=== PATIENT | female | born 1995 | race Caucasian/White ===

== ENCOUNTER 2016-05-15 20:32 | Inpatient (IN) | payer OTHER ==
[~2016-05-15] VITALS: Ht 162.6 cm; Wt 76.1 kg
[2016-05-15 23:00] VITALS: Ht 162.6 cm; Wt 76.1 kg
[2016-05-15] MEDS ORDERED: METHYLERGONOVINE 0.2 MG INJ IM PRN (23:00)
[2016-05-15] MEDS ORDERED: IBUPROFEN 600 MG TAB PO PRN (23:00)
[2016-05-15] MEDS ORDERED: AMPICILLIN 2 GM/NS (PMX) 100 ML IV ONE (23:00)
[2016-05-15] MEDS ORDERED: OXYTOCIN 30 UNITS/LR 500 ML IV SCH (23:00)
[2016-05-15] MEDS ORDERED: BUTORPHANOL 2 MG INJ IV PRN ×2 (23:00)
[2016-05-15] MEDS ORDERED: ACETAMINOPHEN/CODEINE #3 TAB PO PRN (23:00)
[2016-05-15] MEDS ORDERED: LIDOCAINE 1% (MPF) 30 ML INJ INJ PRN (23:00)
[2016-05-15] MEDS ORDERED: LACTATED RINGER'S 1,000 ML IV PRN (23:00)
[2016-05-15] MEDS ORDERED: MISOPROSTOL 200 MCG TAB PR PRN (23:00)
[2016-05-15] MEDS ORDERED: CARBOPROST 250 MCG INJ IM PRN (23:00)
[2016-05-15] MEDS ORDERED: OXYTOCIN 30 UNITS/LR 500 ML IV PRN (23:00)
[2016-05-15 23:01] VITALS: BP 117/71; PULSE 85; RESP 18
[2016-05-15 23:04] LABS: BASOPHILS % 0.4 % (0.0-2.0); EOSINOPHILS % 0.7 % (0.0-7.0); HEMOGLOBIN 13.2 g/dl (12.0-16.0); LYMPHOCYTES # 1.2 10^3/ul (0.8-2.9); LYMPHOCYTES % 17.8 % (15.0-51.0); MEAN CORPUSCULAR HEMOGLOBIN 31.9 pg (29.0-33.0); MEAN CORPUSCULAR HGB CONC 33.9 g/dl (32.0-37.0); MEAN CORPUSCULAR VOLUME 94.1 fl (82.0-101.0); MEAN PLATELET VOLUME 9.2 fl (7.4-10.4); MONOCYTE # 0.5 10^3/ul (0.3-0.9); MONOCYTES % 7.8 % (0.0-11.0); NEUTROPHIL # 4.9 10^3/ul (1.6-7.5); NEUTROPHILS % 73.3 % (39.0-77.0); PLATELET COUNT 156 10^3/UL (140-440); RED BLOOD COUNT 4.15 10^6/ul (4.20-5.40); RED CELL DISTRIBUTION WIDTH 13.7 % (11.5-14.5); UNCORRECTED WBC 6.7 10^3/ul (4.8-10.8); WHITE BLOOD COUNT 6.7 10^3/ul (4.8-10.8)
[2016-05-15 23:06] LABS: CONDITION 1
[2016-05-15 23:07] LABS: INR 0.88; PROTIME 11.9 Sec (12.2-14.2); PT RATIO 0.9
[2016-05-15 23:08] LABS: PARTIAL THROMBOPLASTIN TIME 23.5 Sec (25.0-35.0)
[2016-05-15] MEDS: LACTATED RINGER'S 1,000 ML IV SCH (23:10)
[2016-05-15] MEDS: MISOPROSTOL 25 MCG CAPSULE PO SCH (23:31)
[2016-05-16] MEDS: AMPICILLIN 1 GM/NS (PMX) 50 ML IV SCH ×2 (03:40→07:50)
[2016-05-16] MEDS: MISOPROSTOL 25 MCG CAPSULE PO SCH ×6 (03:41→23:00)
[2016-05-16] MEDS: LACTATED RINGER'S 1,000 ML IV SCH (06:09)
[2016-05-16] MEDS: DEXTROSE 5%-LR 1,000 ML IV SCH ×2 (08:11→16:00)
--- NOTE | 2016-05-16 09:01 | HP ---
Date/Time of Note Date/Time of Note DATE: 05/16/16 TIME: 08:59 OB - History Hx of Present Chief Complaint: induction of labor Estimated Due Date: May 15, 2016 : 2 Para: 0 Spontaneous : 1 Therapeutic : 0 Care: Good Care Ultrasounds: Normal mid trimester US Obstetrical Complications: None Medical Complications: None Past Family/Social History * Past Medical, Surgical, Family and Obstetric Histories reviewed from chart. GBS Status: Positive OB Admission Exam Vital Signs Vital Signs Vital Signs Date Time Temp Pulse Resp B/P Pulse Ox O2 Delivery O2 Flow Rate FiO2 05/15/16 23:01 98.3 85 18 117/71 Room Air Physical Exam HEENT: WNL Heart: Rhythm Normal Lungs: Clear Abdomen: WNL Extremities: Normal Reflexes: Normal Cervical Dilatation: Fingertip Membranes: Intact Accelerations: Accelerations Present Decelerations: No Decelerations Last 72 hours Lab Results CBC & BMP 05/15/16 22:00 OB Assessment/Plan Reason for admission: induction of labor Plan: Induction Induction Method: per Misoprostol Protocol JULIAN FARMER MD May 16, 2016 09:01
[2016-05-16] MEDS: OXYTOCIN 30 UNITS/LR 500 ML IV SCH ×3 (10:11→15:53)
[2016-05-16] MEDS: LACTATED RINGER'S 1,000 ML IV* SCH ×2 (10:50→20:27)
--- NOTE | 2016-05-16 10:50 | LDN ---
Date/Time of Note Date/Time of Note DATE: 05/16/16 TIME: 10:48 Delivery Summary Placenta Delivered: Spontaneously Meconium: none Perineum intact?: Yes Perineal laceration repair: Left labial laceration repaired. Anesthesia type: Local Estimated blood loss: 300 Sponge & Needle done & correct: Yes All needle counts correct: Yes Any foreign bodies felt in the: No Problems: Delivery Information Sex Sex: female Apgars 1 Minute: 9 5 Minute: 9 Suctioning Nose & mouth suctioned at vick: Yes Delee suction performed: No Umbilical Cord Umbilical cord with: 3 Vessels Cord presentations: no nuchal cord Cord Blood was obtained: Yes Mother & Baby Disposition Disposition Mom & Baby to Maternity; Good: Yes JULIAN FARMER MD May 16, 2016 10:50
[2016-05-16] MEDS ORDERED: METHYLERGONOVINE 0.2 MG INJ IM PRN (11:00)
[2016-05-16] MEDS ORDERED: BENZOCAINE 20% 56 ML SPRAY TOP PRN (11:00)
[2016-05-16] MEDS ORDERED: WITCH HAZEL/GLYCERIN PAD PR PRN (11:00)
[2016-05-16] MEDS ORDERED: CARBOPROST 250 MCG INJ IM PRN (11:00)
[2016-05-16] MEDS ORDERED: OXYTOCIN 30 UNITS/LR 500 ML IV PRN (11:00)
[2016-05-16] MEDS ORDERED: MISOPROSTOL 200 MCG TAB PR PRN (11:00)
[2016-05-16] MEDS ORDERED: ACETAMINOPHEN 325 MG TAB PO PRN (11:00)
[2016-05-16] MEDS ORDERED: ACETAMINOPHEN/CODEINE #3 TAB PO PRN (11:00)
[2016-05-16] MEDS ORDERED: DIBUCAINE 1% 30 GM OINT PR PRN (11:00)
[2016-05-16] MEDS: IBUPROFEN 600 MG TAB PO SCH ×2 (12:00→18:00)
[2016-05-16 13:19] VITALS: BP 105/57; PULSE 88; RESP 20
[2016-05-16 15:58] VITALS: BP 101/54; PULSE 89; RESP 19
[2016-05-16 20:00] VITALS: BP 102/57; PULSE 73; RESP 20
[2016-05-16] MEDS: SENNA/DOCUSATE NA (8.6MG/50MG) TAB PO SCH (22:25)
[2016-05-17] VITALS: BP 106/55; PULSE 70; RESP 20
[2016-05-17] MEDS: DEXTROSE 5%-LR 1,000 ML IV SCH
[2016-05-17] MEDS: IBUPROFEN 600 MG TAB PO SCH ×4 (00:20→17:33)
[2016-05-17] MEDS: LACTATED RINGER'S 1,000 ML IV* SCH (02:50)
[2016-05-17] MEDS: MISOPROSTOL 25 MCG CAPSULE PO SCH ×6 (03:00→23:00)
[2016-05-17 04:00] VITALS: BP 101/51; PULSE 64; RESP 20
[2016-05-17 08:30] VITALS: BP 102/59; PULSE 72; RESP 16
[2016-05-17 08:42] LABS: BASOPHILS % 0.1 % (0.0-2.0); EOSINOPHILS % 0.4 % (0.0-7.0); HEMATOCRIT 34.3 % (37.0-47.0); HEMOGLOBIN 11.5 g/dl (12.0-16.0); LYMPHOCYTES # 1.3 10^3/ul (0.8-2.9); LYMPHOCYTES % 17.8 % (15.0-51.0); MEAN CORPUSCULAR HEMOGLOBIN 31.8 pg (29.0-33.0); MEAN CORPUSCULAR HGB CONC 33.5 g/dl (32.0-37.0); MEAN CORPUSCULAR VOLUME 94.8 fl (82.0-101.0); MEAN PLATELET VOLUME 11.2 fl (7.4-10.4); MONOCYTE # 0.5 10^3/ul (0.3-0.9); MONOCYTES % 7.5 % (0.0-11.0); NEUTROPHIL # 5.3 10^3/ul (1.6-7.5); NEUTROPHILS % 73.9 % (39.0-77.0); PLATELET COUNT 138 10^3/UL (140-415); RED BLOOD COUNT 3.62 10^6/ul (4.20-5.40); RED CELL DISTRIBUTION WIDTH 13.3 % (11.5-14.5); WHITE BLOOD COUNT 7.2 10^3/ul (4.8-10.8)
[2016-05-17] MEDS: SENNA/DOCUSATE NA (8.6MG/50MG) TAB PO SCH ×2 (08:51→21:53)
[2016-05-17] MEDS ORDERED: INFLUENZA VIRUS VACCINE 0.5 ML (DISPENSING) IM* ONE (09:00)
[2016-05-17 15:54] VITALS: BP 106/59; PULSE 77; RESP 18
--- NOTE | 2016-05-17 18:44 | PN ---
Date/Time of Note Date/Time of Note DATE: 05/17/16 TIME: 18:43 OB Subjective Subjective Subjective Post day 1 Patient is doing well, Ambulatory She is afebrile Abdomen is soft , Fundus is firm Moderate amount of lochia Breasts are soft, Nipples are intact No calf tenderness. Perineum is healing well. Breast feeding the new born. Laboratory Tests Test 05/17/16 08:05 Basophils # 0.010^3/ul Basophils % 0.1% Eosinophils # 0.010^3/ul Eosinophils % 0.4% Hematocrit 34.3% Hemoglobin 11.5g/dl Lymphocytes # 1.310^3/ul Lymphocytes % 17.8% Mean Corpuscular Hemoglobin 31.8pg Mean Corpuscular Hemoglobin Concent 33.5g/dl Mean Corpuscular Volume 94.8fl Mean Platelet Volume 11.2fl Monocytes # 0.510^3/ul Monocytes % 7.5% Neutrophils # 5.310^3/ul Neutrophils % 73.9% Nucleated Red Blood Cells # 0.010^3/ul Nucleated Red Blood Cells % 0.0/100WBC Platelet Count 53364^3/UL Red Blood Count 3.6210^6/ul Red Cell Distribution Width 13.3% White Blood Count 7.210^3/ul Current Medications Medications (Trade) Dose Ordered Sig/Berta Route PRN Reason Start Time Stop Time Status Last Admin Dose Admin Lactated Ringer's 1,000 ml @ 125 mls/hr Q8H IV 05/15/16 22:47 05/16/16 08:01 DC 05/16/16 06:09 Ampicillin 100 ml @ 100 mls/hr ONCE ONCE IV 05/15/16 23:00 05/15/16 23:59 DC 05/15/16 23:31 Ampicillin (Ampicillin 1 Gm/ NS (Pmx)) 50 ml @ 100 mls/hr Q4H IV 05/16/16 03:00 05/16/16 10:54 DC 05/16/16 07:50 Misoprostol (Cytotec 25 Mcg Capsule) 50 mcg Q4H PO 05/15/16 23:00 05/16/16 03:41 Butorphanol Tartrate (Stadol) 1 mg Q2H PRN IV PAIN 05/15/16 23:00 Butorphanol Tartrate (Stadol) 2 mg Q2H PRN IV PAIN 05/15/16 23:00 Lidocaine 30 ml 30 ml ONCE PRN INJ EPISIOTOMY/TEARING 05/15/16 23:00 Oxytocin/Lactated Ringer's 500 ml @ 125 mls/hr ONCE -MAY REPEAT X1 IV 05/15/16 23:00 05/16/16 15:53 Oxytocin/Lactated Ringer's 500 ml @ 125 mls/hr ONCE IV 05/15/16 23:00 05/16/16 10:29 Ibuprofen (Motrin) 600 mg ONCE PRN PO Mild Pain (Pain Score 1-3) 05/15/16 23:00 05/16/16 18:04 Acetaminophen/ Codeine Phosphate 2 tab 2 tab ONCE PRN PO Moderate to Severe Pain (4-10) 05/15/16 23:00 Lactated Ringer's 1,000 ml @ 2,000 mls/hr Q30M PRN IV PRE-EPIDURAL BOLUS 05/15/16 23:00 Oxytocin/Lactated Ringer's 500 ml @ 0 mls/hr ONCE PRN IV For Hemorrhage Management 05/15/16 23:00 Methylergonovine Maleate (Methergine) 0.2 mg ONCE PRN IM VAGINAL BLEEDING 05/15/16 23:00 Carboprost Tromethamine (Hemabate) 250 mcg ONCE PRN IM VAGINAL BLEEDING 05/15/16 23:00 Misoprostol 1000 mcg 1,000 mcg ONCE PRN [place] VAGINAL BLEEDING 05/15/16 23:00 Dextrose/Lactated Ringer's 1,000 ml @ 125 mls/hr Q8H IV 05/16/16 08:00 05/17/16 10:37 DC 05/16/16 08:11 Lactated Ringer's (Lr) 1,000 ml @ 125 mls/hr Q8H IV* 05/16/16 10:50 05/17/16 10:38 DC 05/16/16 20:27 Ibuprofen (Motrin) 600 mg Q6 PO 05/16/16 12:00 05/17/16 17:33 Acetaminophen (Tylenol Tab) 650 mg Q4H PRN PO PAIN LEVEL 1-5 05/16/16 11:00 Acetaminophen/ Codeine Phosphate (Tylenol No.3) 1 tab Q4H PRN PO PAIN LEVEL 1-5 05/16/16 11:00 Senna/Docusate Sodium (Senokot-S) 1 tab BID PO 05/16/16 21:00 05/17/16 08:51 Witch Afua/ Glycerin (Tucks Pads) 1 pad BEDSIDE MEDICATION PRN [place] HEMORRHOID/EPISIOTMY PAIN 05/16/16 11:00 Benzocaine (Dermoplast Lafferty) 1 spray BEDSIDE MEDICATION PRN TOP HEMORRHOID/EPISIOTMY PAIN 05/16/16 11:00 05/16/16 15:50 Dibucaine (Nupercainal) 1 applic BEDSIDE MEDICATION PRN [place] HEMORRHOID/EPISIOTMY PAIN 05/16/16 11:00 Diphtheria/ Tetanus/Acell Pertussis 0.5 ml 0.5 ml ONCE ONCE IM* 05/18/16 09:00 05/18/16 09:01 Oxytocin/Lactated Ringer's 500 ml @ 0 mls/hr ONCE PRN IV For Hemorrhage Management 05/16/16 11:00 Methylergonovine Maleate (Methergine) 0.2 mg ONCE PRN IM VAGINAL BLEEDING 05/16/16 11:00 Carboprost Tromethamine (Hemabate) 250 mcg ONCE PRN IM VAGINAL BLEEDING 05/16/16 11:00 Misoprostol (Cytotec) 1,000 mcg ONCE PRN [place] VAGINAL BLEEDING 05/16/16 11:00 Influenza Virus Vaccine (Fluzone) 0.5 ml ONCE ONCE IM* 05/17/16 09:00 05/17/16 09:01 DC 05/17/16 10:55 SAIDA MCKEON MD May 17, 2016 18:44
[2016-05-17 20:25] VITALS: BP 99/57; PULSE 81; RESP 18
[2016-05-18] MEDS: IBUPROFEN 600 MG TAB PO SCH ×4 (00:16→18:06)
[2016-05-18] MEDS: MISOPROSTOL 25 MCG CAPSULE PO SCH ×3 (03:00→19:30)
[2016-05-18 04:00] VITALS: BP 124/80; PULSE 80; RESP 18
[2016-05-18 07:45] VITALS: BP_SYST 110; BP_SYST 144; BP_DIAS 40; BP_DIAS 60; PULSE 144; PULSE 77; RESP 18
[2016-05-18] MEDS: SENNA/DOCUSATE NA (8.6MG/50MG) TAB PO SCH ×2 (08:57→21:00)
[2016-05-18] MEDS ORDERED: DIPHTH/TET/ACEL PERTUSS (ADULT) 0.5 ML VIAL IM* ONE (09:00)
[2016-05-18 16:00] VITALS: BP 114/69; PULSE 80; RESP 18
--- NOTE | 2016-05-18 17:54 | DS ---
Date/Time of Note Date/Time of Note DATE: 05/18/16 TIME: 17:53 Obstetrical Discharge Record Final Diagnosis Final Diagnosis: Term delivered Vaginal Delivery Obstetrical Delivery: Spontaneous Complications Induction: Yes Condition on Discharge Physical Assessment Voiding: Yes Bowel Movement: Yes Breast: Soft, non-tender Fundus: Firm Calf Tenderness: No Patient Condition: Stable JULIAN FARMER MD May 18, 2016 17:54
[2016-05-18 20:30] VITALS: BP 103/59; PULSE 72; RESP 18
== END 2016-05-18 22:00 | disposition home or self-care (01) | DRG 775 ==
LOC: L-D 20:32 → PP1 05-16 12:06
PROVIDERS: ADMIT Obstetrics & Gynecology; ATTEND Obstetrics & Gynecology
PROC: 10E0XZZ Delivery of Products of Conception, External Approach (ICD-10-PCS; principal; 2016-05-16)
PROC: 0UQMXZZ Repair Vulva, External Approach (ICD-10-PCS; 2016-05-16)
PROC: 3E00X4Z Introduction of Serum, Toxoid and Vaccine into Skin and Mucous Membranes, External Approach (ICD-10-PCS; 2016-05-18)
DX: O70.0 First degree perineal laceration during delivery (principal); Z23 Encounter for immunization; Z3A.38 38 weeks gestation of pregnancy; Z37.0 Single live birth
CPT/HCPCS: 85025; 85610; 85730; 86592; 86900; 86901; 90686; 90715; J0290; J2590; J7120; J7121